=== PATIENT | male | born 1985 | race African-American/Black ===

== ENCOUNTER 2024-10-12 19:08 | Emergency (ER) | payer MEDICAID, OTHER ==
[~2024-10-12] VITALS: Ht 170.2 cm; Wt 79.9 kg
[2024-10-12 20:15] LABS: Urine Bacteria None Seen /hpf (None Seen)
[2024-10-12 20:22] VITALS: BP 132/69; PULSE 82; RESP 18; TEMP 99.4; O2SAT 95
[2024-10-12 20:30] LABS: Urine Blood TRACE /uL (Negative); Urine Clarity Turbid (Clear); Urine Color Yellow (Yellow); Urine Mucus FEW (None Seen); Urine Protein, UAD TRACE (Negative); Urine Specific Gravity 1.033 (1.001-1.035); Urine Squamous Epithelial Cell FEW /hpf (<5); Urine Urobilinogen Normal (Negative); Urine WBC 338 /HPF (0-3); Urine pH 5.5 (5.0-9.0)
[2024-10-12] MEDS ORDERED: DOXY100C79 PO (21:18)
--- NOTE | 2024-10-12 21:18 | ED.PDOC ---
General HPI Comments 38 year old male presents to ER with complaints of penile discharge x 1 day. Patient states he had unprotected intercourse with 2 other females 3 days ago and today started experiencing white penile discharge with associated dysuria. Denies any current pain and denies use of medications for current symptoms. Patient also denies any previous STD history for himself and denies any known STD history of the 2 females he had unprotected intercourse with. Denies fever, body aches, chills, skin changes, joint pain, testicular pain, back/flank pain, further changes in urination or any further symptoms/complaints Chief Complaint: Penile Discharge Time Seen by MD: 20:03 Primary Care Provider: AUGUST Reviewed notes: Nurses Notes, Medications, Allergies Allergies: Coded Allergies: NO KNOWN ALLERGIES (Unverified , 10/12/24) Home Meds Active Scripts Doxycycline (Monohydrate) (Doxycycline) 100 Mg Cap, 100 MG PO BID for 7 Days, #14 CAP 0 Refills Prov:AALIYAH BALDWIN 10/12/24 Information Source: Patient Mode of Arrival: Ambulatory Past Medical History PAST MEDICAL HISTORY: Denies Surgical History: Denies all surgeries Family History Family History: Unknown Social History Smoker: Other (NICOTINE VAPE) Alcohol: Occasionally Drugs: Denies Drug Use Lives In: Home Constitutional: denies: chills, diaphoresis, fatigue, fever, malaise, sweats, weakness, others EENTM: denies: blurred vision, double vision, ear bleeding, ear discharge, ear drainage, ear pain, ear ringing, eye pain, eye redness, hearing loss, mouth pain, mouth swelling, nasal discharge, nose bleeding, nose congestion, nose pain, photophobia, tearing, throat pain, throat swelling, voice changes, others Respiratory: denies: cough, hemoptysis, orthopnea, SOB at rest, shortness of breath, SOB with excertion, stridor, wheezing, others Cardiovascular: denies: chest pain, dizzy spells, diaphoresis, Dyspnea on exertion, edema, irregular heart beat, left arm pain, lightheadedness, palpitations, PND, syncope, others Gastrointestinal: denies: abdomen distended, abdominal pain, blood streaked bowels, constipated, diarrhea, dysphagia, difficulty swallowing, hematemesis, melena, nausea, poor appetite, poor fluid intake, rectal bleeding, rectal pain, vomiting, others Genitourinary: reports: others (As stated in HPI) Neurological: denies: dizziness, fainting, headache, left sided numbness, left sided weakness, numbness, paresthesia, pre-existing deficit, right sided numbness, right sided weakness, seizure, speech problems, tingling, tremors, weakness, others Musculoskeletal: denies: back pain, gout, joint pain, joint swelling, muscle pain, muscle stiffness, neck pain, others Integumetry: denies: bruises, change in color, change in hair/nails, dryness, laceration, lesions, lumps, rash, wounds, others Allergic/Immunocompromised: denies: Difficulty Healing, Frequent Infections, Hives, Itching, others Hematologic/Lymphatic: denies: anemia, blood clots, easy bleeding, easy bruising, swollen glands, others Endocrine: denies: excessive hunger, excessive sweating, excessive thirst, excessive urination, flushing, intolerance to cold, intolerance to heat, unexplained weight gain, unexplained weight loss, others Psychiatric: denies: anxiety, bipolar disorder, depression, hopeless, panic disorder, schizophrenia, sleepless, suicidal, others Physical Exam General Appearance: No Apparent Distress HEENT: PERRL/EOMI Neck: Full Range of Motion, Non-Tender, Normal Respiratory: Chest Non-Tender, Lungs Clear, No Accessory Muscle Use, No Respira tory Distress, Normal Breath Sounds Cardiovascular: No Murmur, No Gallop, Regular Rate/Rhythm Breast Exam: Deferred Gastrointestinal: NOT DONE Genitalia: Other (White creamy penile discharge noted. No skin changes noted. Remainder of genitalia examination-unremarkable) Pelvic: Deferred Rectal: Deferred Extremities: Normal capillary refill, Normal range of motion Neurologic: Alert, retail sales director II-XII nml as Tested, No Motor Deficits, Normal Affect, Normal Mood, No Sensory Deficits Cerebellar Function: Normal Reflexes: Normal Skin: Dry, Normal Color, Warm Lymphatic: No Adenopathy Was a procedure done? Was a procedure done?: No Sedation Sedation?: No Differential Diagnosis Kidney stone (Female): N/A Penile/Scrotal: Epidiymitis, Prostatitis, Phimosis, Urinary Retention X-Ray, Labs, Meds, VS Vital Signs Date Time Temp Pulse Resp B/P (MAP) Pulse Ox O2 Delivery O2 Flow Rate FiO2 6/10/25 20:22 Room Air* 0 21 10/12/24 20:22 99.4 82 18 132/69 (90) 95 99.4 10/12/24 19:30 99.4 82 18 132/69 (90) 95 99.4 Lab Test 10/12/24 19:42 Range/Units Urine Color Yellow Yellow Urine Clarity Turbid H Clear Urine pH 5.5 5.0-9.0 Urine Specific [place] 1.033 1.001-1.035 Urine Protein Trace H Negative Urine Ketones Negative Negative Urine Blood Trace H Negative /uL Urine Nitrite Negative Negative Urine Bilirubin Negative Negative Urine Urobilinogen Normal Negative mg/dL Urine Leukocyte Esterase 3+ Negative /uL Urine RBC 9 0 - 3 /hpf Urine Microscopic WBC 338 H 0-3 /HPF Urine Squamous Epithelial Cells Few <5 /hpf Urine Bacteria None seen None Seen /hpf Urine Mucus Few None Seen Urine Glucose Normal Normal mg/dL Chlamydia trachomatis (MILLER) Pending Neisseria gonorrhoeae (MILLER) Pending Current Medications Medications (Trade) Dose Ordered Sig/Oksana Route Start Time Stop Time Status Last Admin Ceftriaxone Sodium (Rocephin) 1,000 mg ONCE ONCE IM 10/12/24 21:15 10/12/24 21:17 DC 10/12/24 21:29 Azithromycin (Zithromax Tablet) 1,000 mg ONCE ONCE PO 10/12/24 21:15 10/12/24 21:17 DC 10/12/24 21:28 Urinalysis reviewed-urine leukocyte esterase 3+, urine blood trace, urine nitrites negative Chlamydia/Gonorrhea amplification test ordered Rocephin 1 g IM ordered Azithromycin 1 g p.o. ordered Safe sex practices discussed and advised Patient provided information with regards to local public Health Department and was advised to have him and his previous sexual partners follow-up as soon as possible for further STD testing/treatment Advised to avoid sexual intercourse for at least one week Advised to follow up with PCP in 1-2 days Patient verbalized understanding and agreeable with current plan of care Advised to return to ER immediately if symptoms worsen Time of 1ST Reevaluation: 20:54 Reevaluation 1ST: N/A Patient Education/Counseling: Diagnosis, Treatment, Prognosis, Need For Follow Up Family Education/Counseling: No Family Present Departure 1 Departure Time of Disposition: 21:12 Impression: Primary Impression: Exposure to STD Additional Impression: UTI (urinary tract infection) Qualified Codes: N30.01 - Acute cystitis with hematuria Disposition: HOME / SELF CARE / HOMELESS Condition: Stable e-Prescriptions Doxycycline (Monohydrate) (Doxycycline) 100 Mg Cap 100 MG PO BID for 7 Days, #14 CAP 0 Refills Prov: AALIYAH BALDWIN 10/12/24 Discharged With: Self Critical Care Note Critical Care Time?: No Stability Stability form required: No Heart Score Heart Score: Heart Score Response (Comments) Value History N/A 0 EKG N/A 0 Age N/A 0 Risk Factors N/A 0 Troponin N/A 0 Total 0 AALIYAH BALDWIN Oct 12, 2024 21:18
[2024-10-12] MEDS: AZITHROMYCIN 250 MG TAB PO ONE (21:28)
[2024-10-12] MEDS: cefTRIAXone SOD 1,000 MG VL IM ONE (21:29)
[2024-10-14 12:07] LABS: Neisseria gonorrhoeae, NAA Positive (Negative)
[2024-10-15 02:06] LABS: Chlamydia Trachomatis, NAA Indeterminate (Negative)
== END 2024-10-12 21:34 | disposition home or self-care (01) ==
LOC: ER 19:08
DX: N39.0 Urinary tract infection, site not specified (principal); F17.290 Nicotine dependence, other tobacco product, uncomplicated; F10.90 Alcohol use, unspecified, uncomplicated; Z79.899 Other long term (current) drug therapy; Z20.2 Contact with and (suspected) exposure to infections with a predominantly sexual mode of transmission; Y90.9 Presence of alcohol in blood, level not specified
CPT/HCPCS: 81001; 87491; 87591; 96372; 99283; J0696